=== PATIENT | male | born 1965 | race Caucasian/White ===

== ENCOUNTER 2018-05-06 16:43 | Emergency (ER) | payer OTHER ==
--- NOTE | 2018-05-06 16:57 | EDPHY ---
H & P Time Seen by Provider: 05/06/18 16:46 HPI/ROS: CHIEF COMPLAINT: Referred to ED for hypertension HISTORY OF PRESENT ILLNESS: The patient is referred to the ED by his primary care provider for elevated blood pressure noted in the clinic. The patient reportedly had a blood pressure of 180/120. He received clonidine without improvement of his symptoms. Patient typically is on carvedilol and hydrochlorothiazide. He has had several procedures done over the past several weeks. He reportedly had a negative recent coronary angiogram. The patient also had a normal EGD recently by report of his primary care provider. The patient has been bothered by a chronic cough for several months. He has been diagnosed with presumptive reflux which prompted the ED. The patient was noted to be quite hypertensive following his EGD and ultimately was referred to Cardiology who evaluated the patient with an unremarkable angiogram recently. The patient reports that he has recently changes blood pressure medications he did have problems with low blood pressure but ultimately has been on a fairly stable dose of carvedilol and hydrochlorothiazide with normal blood pressures noted at home. Aside from his chronic cough the patient has no acute complaints currently. REVIEW OF SYSTEMS: A comprehensive 10 point review of systems is otherwise negative aside from elements mentioned in the history of present illness. Source: Patient Exam Limitations: No limitations - Medical/Surgical History PMH: Past medical history: Chronic cough, hypertension - Family History Significant Family History: No pertinent family hx - Social History Smoking Status: Never smoked - Physical Exam Exam: General Appearance: Alert, no distress Eyes: Pupils equal and round no pallor or injection ENT, Mouth: Mucous membranes moist Respiratory: There are no retractions, lungs are clear to auscultation Cardiovascular: Regular rate and rhythm Gastrointestinal: Abdomen is soft and nontender, no masses, bowel sounds normal Neurological: A&O, normal motor function, normal sensory exam, normal cranial nerves Skin: Warm and dry, no rashes Musculoskeletal: Neck is supple nontender Extremities: symmetrical, full range of motion Psychiatric: Patient is oriented X 3, there is no agitation Constitutional: Initial Vital Signs Temperature (C) 36.4 C 05/06/18 16:48 Heart Rate 83 05/06/18 16:48 Respiratory Rate 18 05/06/18 16:48 Blood Pressure 210/118 H 05/06/18 16:48 O2 Sat (%) 97 05/06/18 16:48 O2 Delivery Mode Room Air Allergies/Adverse Reactions: Penicillins Allergy (Verified 05/06/18 16:47) Home Medications: Medication Instructions Recorded Carvedilol 05/06/18 amLODIPine BESYLATE [Norvasc 5 mg 5 mg PO DAILY #14 tab 05/06/18 (*)] Medical Decision Making - Diagnostics EKG Interpretation: EKG: Complete interpretation has been separately recorded in the [email or web address] archive. Summary impression: Sinus rhythm, rate 89 Imaging Results: Imaging Impressions Chest X-Ray 05/06/18 16:47 Impression: 1. Bilateral hilar enlargement suspicious for lymphadenopathy. This could be further characterized with chest CT as clinically appropriate. 2. Central bronchitis.. Results called to Dr. Dominic Ivey at 5:30 PM. Chest/Thorax CTA 05/06/18 17:39 Impression: 1. No evidence for pulmonary embolic disease. 2. Mediastinal and hilar adenopathy coupled with homogeneous splenomegaly. These are associated with 2 small noncalcified peripheral pulmonary nodules. Differential diagnosis includes lymphoma, sarcoid, metastatic disease from unknown primary, Castleman's disease and Rosai Joe disease. Diagnosis would be amenable to mediastinoscopy. Results discussed with Dominic Ford MD at 6:49 PM. General information for patients regarding this examination can be found at [email or web address]. If you have questions or comments about this report, please contact me at [phone] (hospital) or [phone] (cell). ED Course/Re-evaluation: The patient presents to the ED with elevated blood pressure. He is noted to be neurologically intact. His EKG demonstrates no evidence of ischemia. The patient has had a chronic cough. His chest x-ray does demonstrate some perihilar prominence. The patient did received 5 mg of Norvasc orally. The patient's blood pressure did improve in the emergency department. It is currently 174/110. The patient's chest x-ray was followed up with a CT scan of the chest which demonstrates mediastinal adenopathy and splenomegaly. I reviewed these findings in the differential diagnosis with the patient. The patient was offered admission to the hospital for further workup of this condition however is quite adamant about wanting to go home and pursue an outpatient workup. I did page Dr. Edward Negro from Pulmonary in spoke with him at 7:30 pm. He is asked that the patient contact his office mid morning and they will discuss seeing him in the office for further workup. Differential Diagnosis: Differential diagnosis considered includes hypertensive emergency, pulmonary embolism, congestive heart failure, sarcoidosis, aortic dissection, myocardial infarction - Data Points Laboratory Results: Laboratory Results 05/06/18 17:09 05/06/18 17:09 05/06/18 05/06/18 05/06/18 17:11 17:09 17:09 WBC RBC Hgb Hct MCV MCH MCHC RDW Plt Count MPV Neut % (Auto) Lymph % (Auto) [place] % (Auto) Eos % (Auto) Baso % (Auto) Nucleat RBC Rel Count Absolute Neuts (auto) Absolute Lymphs (auto) Absolute Monos (auto) Absolute Eos (auto) Absolute Basos (auto) Absolute Nucleated RBC Immature Gran % Immature Gran # RBC/WBC/PLT Morphology Platelet Estimate D-Dimer 0.42 ug/mLFEU ug/mLFEU (0.00-0.50) Sodium 132 mEq/L L mEq/L (135-145) Potassium 4.1 mEq/L mEq/L (3.5-5.2) Chloride 95 mEq/L L mEq/L (97-110) Carbon Dioxide 26 mEq/l mEq/l (22-31) Anion Gap 11 mEq/L mEq/L (6-14) BUN 16 mg/dL mg/dL (7-23) Creatinine 1.2 mg/dL mg/dL (0.7-1.3) Estimated GFR > 60 Glucose 94 mg/dL mg/dL (70-100) Calcium 9.2 mg/dL mg/dL (8.5-10.4) POC Troponin I 0.01 ng/mL ng/mL (0.00-0.08) NT-Pro-B Natriuret Pep 151 pg/mL H pg/mL (0-125) 05/06/18 17:09 WBC 10.46 10^3/uL H 10^3/uL (3.80-9.50) RBC 5.03 10^6/uL 10^6/uL (4.40-6.38) Hgb 15.0 g/dL g/dL (13.7-17.5) Hct 44.0 % % (40.0-51.0) MCV 87.5 fL fL (81.5-99.8) MCH 29.8 pg pg (27.9-34.1) MCHC 34.1 g/dL g/dL (32.4-36.7) RDW 12.1 % % (11.5-15.2) Plt Count 293 10^3/uL 10^3/uL (150-400) MPV 10.3 fL fL (8.7-11.7) Neut % (Auto) 66.3 % % (39.3-74.2) Lymph % (Auto) 16.6 % % (15.0-45.0) [place] % (Auto) 14.6 % H % (4.5-13.0) Eos % (Auto) 1.4 % % (0.6-7.6) Baso % (Auto) 0.7 % % (0.3-1.7) Nucleat RBC Rel Count 0.0 % % (0.0-0.2) Absolute Neuts (auto) 6.93 10^3/uL H 10^3/uL (1.70-6.50) Absolute Lymphs (auto) 1.74 10^3/uL 10^3/uL (1.00-3.00) Absolute Monos (auto) 1.53 10^3/uL H 10^3/uL (0.30-0.80) Absolute Eos (auto) 0.15 10^3/uL 10^3/uL (0.03-0.40) Absolute Basos (auto) 0.07 10^3/uL 10^3/uL (0.02-0.10) Absolute Nucleated RBC 0.00 10^3/uL 10^3/uL (0-0.01) Immature Gran % 0.4 % % (0.0-1.1) Immature Gran # 0.04 10^3/uL 10^3/uL (0.00-0.10) RBC/WBC/PLT Morphology TNP Platelet Estimate TNP D-Dimer Sodium Potassium Chloride Carbon Dioxide Anion Gap BUN Creatinine Estimated GFR Glucose Calcium POC Troponin I NT-Pro-B Natriuret Pep Medications Given: Discontinued Medications Amlodipine Besylate (Norvasc) 5 mg PO EDNOW ONE Stop: 05/06/18 17:15 Last Admin: 05/06/18 17:26 Dose: 5 mg Point of Care Test Results: Chemistry 12/10/18 17:11 POC Troponin I 0.01 ng/mL ng/mL (0.00-0.08) Departure - Departure Disposition: Home, Routine, Self-Care Clinical Impression: Hypertension, Mediastinal lymphadenopathy Condition: Good Instructions: Chronic Hypertension (ED) Additional Instructions: 1. Please begin Norvasc 5 mg daily for elevated blood pressure. You have been given a 2 week supply. Please schedule a follow-up appointment with your primary care provider or manager membership for a blood pressure recheck in the next 1 -2 weeks. 2. Regarding the abnormality seen on your chest CT scan, I did speak with our personnel officer Dr. Edward Negro. He would like you to contact his office mid morning tomorrow to arrange a follow-up visit and discuss additional workup of the abnormality seen today. You have been given Dr. Negro contact information. 3. Please return to the ED for markedly worsening uncontrolled high blood pressure, chest pain, difficulty breathing or other concerns. Referrals: Jose Carlos Pruitt MD [Medical Doctor] - As per Instructions Prescriptions: amLODIPine BESYLATE [Norvasc 5 mg (*)] 5 mg PO DAILY #14 tab
[2018-05-06] MEDS ORDERED: amLODIPine BESYLATE 5 MG TAB PO ONE (17:14)
[2018-05-06 17:17] LABS: PLATELET COUNT 293 10^3/uL (150-400)
--- NOTE | 2018-05-06 17:20 | CPEKG ---
Test Reason : OPEN Blood Pressure : / mmHG Vent. Rate : 089 BPM Atrial Rate : 087 BPM P-R Int : 140 ms QRS Dur : 096 ms QT Int : 386 ms P-R-T Axes : 046 035 032 degrees QTc Int : 470 ms Sinus rhythm Confirmed by Doug Ford ([id number]) on 05/06/2018 5:20:03 PM Referred By: Confirmed By:Doug Ford
[2018-05-06] MEDS ORDERED: IOPAMIDOL (ISOVUE 370) 100 ML BTL IV ONE (17:47)
[2018-05-06 19:35] VITALS: BP 174/106
== END 2018-05-06 20:17 | disposition home or self-care (01) ==
DX: I10 Essential (primary) hypertension (principal); R59.0 Localized enlarged lymph nodes; R16.1 Splenomegaly, not elsewhere classified; R05 Cough
CPT/HCPCS: 84484-PO; Q9967